=== PATIENT | male | born 1965 | race Caucasian/White ===

== ENCOUNTER → 2021-10-12 08:23 | Outpatient (CLI) | payer OTHER, SELFPAY ==
--- NOTE | ~2021-10-12 | XR_ITS ---
EXAMINATION: XR ankle LT min 3V DATE: 10/12/2021 08:41 INDICATION: Left ankle swelling TECHNIQUE: Anteroposterior, oblique, mortise, and lateral views of the left ankle were obtained. COMPARISON: None. FINDINGS: Alignment is normal. No acute fracture. Chronic corticated ossicle distal tip the medial malleolus li jonatan sequela of chronic medial ankle sprain. Joint spaces are normal. Moderate-sized plantar calcanea l spur. Likely left ankle joint effusion. IMPRESSION: 1. Likely left ankle joint effusion. No acute osseous abnormality. Reviewed, dictated and finalized at location B.
== END ==
PROVIDERS: PCP Pediatrics; Visit Provider Pediatrics
DX: M25.472 Effusion, left ankle (principal)
CPT/HCPCS: 73610